=== PATIENT | female | born 1980 | race Caucasian/White ===

== ENCOUNTER 2018-03-03 22:43 | Emergency (ER) | payer MEDICAID, OTHER ==
[~2018-03-03] VITALS: Ht 160 cm; Wt 154.0 kg
--- NOTE | 2018-03-03 23:00 | NUR ---
VAGINAL EXAM PER DR ZENG AND STATES CERVIX DILATED TO APPROX 6CM, FELT POSSIBLE PLACENTA BUT DID NOT VISUALIZE HAIR, ETC. PT STATES WATER BROKE WITH MUCOUS PLUG COMING OUT 2 DAYS AGO.
[2018-03-03 23:06] VITALS: BP 120/80
--- NOTE | 2018-03-03 23:26 | NUR ---
REPORT TO MEDICS, CONTRACTIONS LASTING APPROX 40 SEC MARI FISHER TO ACCOMPANY PT TO [facility].
== END 2018-03-03 23:39 | disposition short-term general hospital (02) ==
LOC: ER 22:44
DX: O75.89 Other specified complications of labor and delivery (principal); J45.909 Unspecified asthma, uncomplicated; Z98.890 Other specified postprocedural states; Z88.5 Allergy status to narcotic agent; Z88.8 Allergy status to other drugs, medicaments and biological substances; Z3A.00 Weeks of gestation of pregnancy not specified
CPT/HCPCS: 99285

== ENCOUNTER 2020-04-04 16:16 | Emergency (ER) | payer MEDICAID, OTHER ==
[~2020-04-04] VITALS: Ht 162.6 cm; Wt 59.1 kg
[2020-04-04 16:20] VITALS: BP 131/74
[2020-04-04] MEDS ORDERED: OLAN5TAB3 PO (16:36)
== END 2020-04-04 16:46 | disposition home or self-care (01) ==
LOC: ER 16:17
DX: Z76.0 Encounter for issue of repeat prescription (principal); J45.909 Unspecified asthma, uncomplicated; F17.200 Nicotine dependence, unspecified, uncomplicated; Z98.890 Other specified postprocedural states; Z88.6 Allergy status to analgesic agent; Z88.1 Allergy status to other antibiotic agents; Z88.8 Allergy status to other drugs, medicaments and biological substances; Z79.899 Other long term (current) drug therapy
CPT/HCPCS: 99283

== ENCOUNTER 2020-04-22 17:08 | Emergency (ER) | payer MEDICAID ==
[~2020-04-22] VITALS: Ht 160 cm; Wt 66.9 kg
[~2020-04-22 17:08] MED LIST: OLAN5TAB3 PO
[2020-04-22 17:10] VITALS: BP 112/68
[2020-04-22] MEDS ORDERED: olanzapine 10mg tablet PO ONE (17:30)
== END 2020-04-22 17:44 | disposition home or self-care (01) ==
LOC: ER 17:09
DX: R44.1 Visual hallucinations (principal); Z76.0 Encounter for issue of repeat prescription; J45.909 Unspecified asthma, uncomplicated; Z98.890 Other specified postprocedural states; Z88.6 Allergy status to analgesic agent; Z88.1 Allergy status to other antibiotic agents; Z88.5 Allergy status to narcotic agent; Z79.899 Other long term (current) drug therapy
CPT/HCPCS: 99283

== ENCOUNTER 2022-04-25 17:12 | Emergency (ER) | payer MEDICAID ==
[~2022-04-25] VITALS: Ht 160 cm; Wt 77.0 kg
[~2022-04-25 17:12] MED LIST changes: +APIX5TAB3 PO; +HYDR-3972 PO; +NICO-687 TD; -OLAN5TAB3 PO; +OLAN5TAB75 PO; +ONDA4TAB12 PO
[2022-04-25] MEDS ORDERED: dexamethasone sod phosphate 10mg/ml inj PO STA (23:28)
[2022-04-25] MEDS ORDERED: azithromycin 250mg tablet PO ONE (23:30)
[2022-04-25] MEDS ORDERED: DOXYCYCLINE 100MG CAPSULE PO STA (23:30)
[2022-04-25] MEDS ORDERED: DOXY100C43 PO (23:31)
[2022-04-26 00:38] VITALS: BP 145/95
== END 2022-04-26 00:40 | disposition home or self-care (01) ==
LOC: ER 17:13
DX: J45.909 Unspecified asthma, uncomplicated (principal); Z20.822 Contact with and (suspected) exposure to COVID-19; F17.210 Nicotine dependence, cigarettes, uncomplicated; Z98.890 Other specified postprocedural states; Z88.1 Allergy status to other antibiotic agents; Z88.8 Allergy status to other drugs, medicaments and biological substances; Z88.5 Allergy status to narcotic agent; Z79.01 Long term (current) use of anticoagulants; Z79.899 Other long term (current) drug therapy
CPT/HCPCS: 87502; 87503; 87635; 99283; C9803; J1100

== ENCOUNTER 2023-04-18 16:59 | Emergency (ER) | payer MEDICAID ==
[~2023-04-18] VITALS: Ht 160 cm; Wt 56.2 kg
[2023-04-18 17:58] VITALS: PULSE 98; RESP 18; TEMP 98.4; O2SAT 99
[2023-04-18] MEDS ORDERED: AMOX-117 PO (18:10)
[2023-04-18] MEDS ORDERED: CIPR7.5D7 OT (18:10)
== END 2023-04-18 18:41 | disposition home or self-care (01) ==
LOC: ER 17:00
DX: H66.91 Otitis media, unspecified, right ear (principal); H60.91 Unspecified otitis externa, right ear; Z88.1 Allergy status to other antibiotic agents; Z88.6 Allergy status to analgesic agent; Z88.8 Allergy status to other drugs, medicaments and biological substances; Z79.899 Other long term (current) drug therapy; Z98.890 Other specified postprocedural states
CPT/HCPCS: 99283